=== PATIENT | male | born 1960 | race African-American/Black ===

== ENCOUNTER 2020-09-28 13:05 | Emergency (ER) | payer BC ==
--- NOTE | 2020-09-28 14:23 | RAD REPORT ---
EXAM DESCRIPTION: RAD - Chest Pa And Lat (2 Views) - 09/28/2020 2:05 pm CLINICAL HISTORY: COUGH Chest pain. FINDINGS: Moderate bilateral pulmonary opacities are present suspicious for COVID-19 infection. The heart is normal in size.
[2020-09-28 15:20] LABS: Potassium 3.9 mmol/L (3.5-5.1)
[2020-09-28 15:22] LABS: Absolute Lymphocytes (CBC) 1.1 K/uL (0.7-4.9); Basophils % 0.4 % (0-1.3); Hematocrit 43.2 % (39.6-49.0); Lymphocytes % 13.2 % (15.3-44.8); MPV 8.6 fL (7.6-11.3)
--- NOTE | 2020-09-28 16:18 | RAD REPORT ---
EXAM DESCRIPTION: CT - Chest For Pe Angio - 09/28/2020 4:07 pm CLINICAL HISTORY: Chest pain. shortness of breath COMPARISON: SHOULDER dated 02/04/2007 TECHNIQUE: CT angiogram of the pulmonary arteries was performed with MIP. All CT scans are performed using dose optimization technique as appropriate and may include automated exposure control or mA/KV adjustment according to patient size. FINDINGS: No evidence of pulmonary thromboembolism. No acute aortic finding demonstrated. Extensive bilateral pulmonary opacities are present most compatible with underlying COVID-19 infectio n. No significant pericardial or pleural fluid. No concerning bony finding. IMPRESSION: No evidence of pulmonary thromboembolism. Extensive bilateral pulmonary opacities are present, most compatible with COVID-19 infection.
--- NOTE | 2020-09-28 17:39 | ER ---
Nurse's Notes [facility] Name: Braxton Guzmán Age: 60 yrs Sex: Male : 1960 Arrival Date: 09/28/2020 Time: 13:10 Bed 23 Private MD: Diagnosis: Coronavirus infection, unspecified Presentation: 09/28 13:27 Chief complaint: Patient states: "shortness of breath since last week. COVID. feeling jd3 worse today. waking up in sweats.". Coronavirus screen: cough unrelated to allergies, difficulty breathing, fatigue, Client presents with at least one sign or symptom that may indicate coronavirus-19. Standard/surgical mask placed on the client. Provider contacted for isolation considerations. Ebola Screen: Patient negative for fever greater than or equal to 101.5 degrees Fahrenheit, and additional compatible Ebola Virus Disease symptoms. Initial Sepsis Screen: Does the patient meet any 2 criteria? No. Patient's initial sepsis screen is negative. Does the patient have a suspected source of infection? No. Patient's initial sepsis screen is negative. Risk Assessment: Do you want to hurt yourself or someone else? Patient reports no desire to harm self or others. Onset of symptoms was September 21, 2020. 13:27 Method Of Arrival: Ambulatory jd3 13:27 Acuity: SUSANNE 3 jd3 Historical: - Allergies: 13:31 No Known Allergies; jd3 - Home Meds: 13:31 lisinopril 40 mg Oral tab [Active]; amlodipine 10 mg tab [Active]; metoprolol tartrate jd3 50 mg Oral tab [Active]; - PMHx: 13:31 Hypertension; jd3 - PSHx: 13:31 achillies tendon repair bilateral; jd3 - Immunization history:: Adult Immunizations up to date. - Social history:: Smoking status: Patient denies any tobacco usage or history of. Screenin:46 Abuse screen: Denies threats or abuse. Abuse screen: Denies injuries from another. zb Nutritional screening: No deficits noted. Tuberculosis screening: No symptoms or risk factors identified. Fall Risk None identified. Assessment: 14:44 General: Appears in no apparent distress. uncomfortable, Behavior is calm, cooperative, zb appropriate for age, Reports feeling ill for > 3 days, fatigue for >3 days. Pain: Denies pain. Neuro: Level of Consciousness is awake, alert, obeys commands, Oriented to person, place, time, situation. Cardiovascular: Heart tones S1 present Capillary refill < 3 seconds Patient's skin is warm and dry. Respiratory: Reports shortness of breath at rest cough that is non-productive, persistent Airway is patent Respiratory effort is even, unlabored, Respiratory pattern is tachypnea Breath sounds are diminished in right middle lobe, left lower lobe and right lower lobe. GI: No deficits noted. EENT: Throat is clear. Derm: Skin is intact, is healthy with good turgor, Skin is dry, Skin is normal, Skin temperature is warm. Musculoskeletal: Circulation, motion, and sensation intact. Range of motion: intact in all extremities. 15:10 Reassessment: Patient appears in no apparent distress at this time. Patient and/or zb family updated on plan of care and expected duration. Pain level reassessed. Patient is alert, oriented x 3, equal unlabored respirations, skin warm/dry/pink. patient given water and sandwich while waiting on results. Patient states feeling better. Patient states symptoms have improved. 16:12 Reassessment: Patient appears in no apparent distress at this time. Patient and/or zb family updated on plan of care and expected duration. Pain level reassessed. patient returned from CT-scan. ambulated to restroom. 17:31 Reassessment: Patient appears in no apparent distress at this time. Patient and/or zb family updated on plan of care and expected duration. Pain level reassessed. Patient is alert, oriented x 3, equal unlabored respirations, skin warm/dry/pink. patient states that he is still coughing, want cough medication. notified ECP. 17:34 Reassessment: ECP at bedside discussing care with patient. zb 17:50 Reassessment: d/c instructions. given gait even and steady. no issues that the at this zb time. Vital Signs: 13:31 BP 135 / 90; Pulse 94; Resp 19 S; Temp 98.4(O); Pulse Ox 95% on R/A; Weight 94.35 kg jd3 (R); Height 5 ft. 7 in. (170.18 cm) (R); Pain 0/10; 15:10 BP 143 / 89; Pulse 79; Resp 20; Pulse Ox 94% on R/A; zb 16:30 BP 135 / 87; Pulse 82; Resp 19; Pulse Ox 92% on R/A; zb 17:31 BP 136 / 91; Pulse 82; Resp 16; Pulse Ox 92% on R/A; zb 13:31 Body Mass Index 32.58 (94.35 kg, 170.18 cm) jd3 ED Course: 13:10 Patient arrived in ED. am2 13:29 Triage completed. jd3 13:32 Arm band placed on. jd3 14:05 XRAY Chest Pa And Lat (2 Views) In Process Unspecified. EDMS 14:14 Sheldon Lorenzo PA is PHCP. jm 14:14 Placido Quiroga MD is Attending Physician. [facility] 14:32 Deirdre Roberts, LUCIANO is Primary Nurse. zb 14:46 Patient has correct armband on for positive identification. Bed in low position. Call zb light in reach. Side rails up X 1. Pulse ox on. NIBP on. Door closed. Noise minimized. 14:47 Inserted saline lock: 20 gauge in right antecubital area, using aseptic technique. zb Blood collected. 14:47 Initial lab(s) drawn, by ms, sent to lab. Strep swab sent to lab. zb 16:07 CT Chest For PE Angio In Process Unspecified. EDMS 17:51 No provider procedures requiring assistance completed. IV discontinued, intact, zb bleeding controlled, No redness/swelling at site. Pressure dressing applied. Administered Medications: 14:45 Drug: Decadron - Dexamethasone 10 mg Route: IVP; Site: right antecubital; zb 17:00 Follow up: Response: No adverse reaction; Marked relief of symptoms zb Outcome: 17:38 Discharge ordered by . michelle 17:51 Discharged to home ambulatory. zb 17:51 Condition: stable 17:51 Discharge instructions given to patient, Instructed on discharge instructions, follow up and referral plans. medication usage, Demonstrated understanding of instructions, follow-up care, medications, Prescriptions given X 3. 17:52 Patient left the ED. zb Signatures: Dispatcher [employer] EDMS Sheldno Lorenzo PA PA Sylvia Bustamante am2 Keo Elliott RN RN j Deirdre Roberts RN RN zb Corrections: (The following items were deleted from the chart) 13:33 13:31 Pulse 94bpm; Resp 19bpm; Spontaneous; Pulse Ox 95% RA; Temp 98.4F Oral; 94.35 kg jd3 Reported; Height 5 ft. 7 in. Reported; BMI: 32.5; Pain 0/10; jd3 16:13 15:10 Reassessment: patient given water and sandwich while waiting on results. martita anders
--- NOTE | 2020-09-28 17:39 | EDPHYS ---
Physician Documentation [facility] Name: Braxton Guzmán Age: 60 yrs Sex: Male : 1960 Arrival Date: 09/28/2020 Time: 13:10 Bed 23 Private MD: ED Physician Placido Quiroga HPI: 09/28 14:28 This 60 yrs old Black Male presents to ER via Ambulatory with complaints of shortness jmm of breath. 14:28 Onset: The symptoms/episode began/occurred gradually. Modifying factors: The symptoms jmm are alleviated by nothing, the symptoms are aggravated by nothing. Associated signs and symptoms:. This is a 60 year old male with a history of htn that presents to the ED with complaints of cough, congestion, increased sob since diagnoses of covid 1 week ago. . Historical: - Allergies: 13:31 No Known Allergies; jd3 - Home Meds: 13:31 lisinopril 40 mg Oral tab [Active]; amlodipine 10 mg tab [Active]; metoprolol tartrate jd3 50 mg Oral tab [Active]; - PMHx: 13:31 Hypertension; jd3 - PSHx: 13:31 achillies tendon repair bilateral; jd3 - Immunization history:: Adult Immunizations up to date. - Social history:: Smoking status: Patient denies any tobacco usage or history of. ROS: 14:28 Constitutional: Negative for fever, chills, and weight loss. jmm 14:28 ENT: Positive for sinus congestion, sore throat. 14:28 Respiratory: Positive for shortness of breath. 14:28 All other systems are negative. Exam: 14:28 Constitutional: This is a well developed, well nourished patient who is awake, alert, jmm and in no acute distress. Head/Face: atraumatic. Eyes: EOMI, no conjunctival erythema appreciated ENT: Moist Mucus Membranes Neck: Trachea midline, Supple Chest/axilla: Normal chest wall appearance and motion. Cardiovascular: Regular rate and rhythm. No edema appreciated Respiratory: Normal respirations, no respiratory distress appreciated Abdomen/GI: Non distended, soft Back: Normal ROM Skin: General appearance color normal MS/ Extremity: Moves all extremities, no obvious deformities appreciated, no edema noted to the lower extremities Neuro: Awake and alert, normal gait Psych: Behavior is normal, Mood is normal, Patient is cooperative and pleasant Vital Signs: 13:31 BP 135 / 90; Pulse 94; Resp 19 S; Temp 98.4(O); Pulse Ox 95% on R/A; Weight 94.35 kg jd3 (R); Height 5 ft. 7 in. (170.18 cm) (R); Pain 0/10; 15:10 BP 143 / 89; Pulse 79; Resp 20; Pulse Ox 94% on R/A; zb 16:30 BP 135 / 87; Pulse 82; Resp 19; Pulse Ox 92% on R/A; zb 17:31 BP 136 / 91; Pulse 82; Resp 16; Pulse Ox 92% on R/A; zb 13:31 Body Mass Index 32.58 (94.35 kg, 170.18 cm) jd3 MDM: 14:23 Patient medically screened. [facility] 17:37 Data reviewed: vital signs, nurses notes. Counseling: I had a detailed discussion with sunni the patient and/or guardian regarding: the historical points, exam findings, and any diagnostic results supporting the discharge/admit diagnosis, lab results, radiology results, the need for outpatient follow up, to return to the emergency department if symptoms worsen or persist or if there are any questions or concerns that arise at home. ED course: VS WNL, imagins studies negative for PE. Patient prescribed oral medication and otherwise given strict return precautions. Patient understood and agrees with the plan of care. . 09/28 14:24 Order name: Strep; Complete Time: 15:26 [facility] 09/28 14:24 Order name: CBC with Diff; Complete Time: 15:27 [facility] 09/28 13:32 Order name: XRAY Chest Pa And Lat (2 Views); Complete Time: 14:27 [facility] 09/28 14:24 Order name: BMP; Complete Time: 15:22 [facility] 09/28 14:24 Order name: D-Dimer; Complete Time: 15:25 [facility] 09/28 15:26 Order name: Throat Culture [facility] 09/28 14:24 Order name: Saline Lock; Complete Time: 14:43 [facility] 09/28 15:23 Order name: CT Chest For PE Angio; Complete Time: 16:25 [facility] Administered Medications: 14:45 Drug: Decadron - Dexamethasone 10 mg Route: IVP; Site: right antecubital; zb 17:00 Follow up: Response: No adverse reaction; Marked relief of symptoms zb Disposition: 18:10 Co-signature as Attending Physician, Placido Quiroga MD. rn Disposition: 09/28/20 17:38 Discharged to Home. Impression: Coronavirus infection, unspecified. - Condition is Stable. - Discharge Instructions: COVID-19. - Prescriptions for ivermectin 3 mg Oral tablet - take 6 tablet by ORAL route as directed one dose now and one dose on day 3; 12 tablet. Prednisone 20 mg Oral Tablet - take 3 tablet by ORAL route once daily for 5 days; 15 tablet. Albuterol Sulfate 90 mcg/actuation - inhale 1-2 puff by INHALATION route every 4-6 hours; 1 Inhaler. - Medication Reconciliation Form, Thank You Letter, Antibiotic Education, Prescription Opioid Use form. - Follow up: Private Physician; When: 2 - 3 days; Reason: Recheck today's complaints, Continuance of care, Re-evaluation by your physician. - Notes: Please take 10,000 IU of Vitamin D daily. Please take 1000 MG of NAC (N-Acetyl Cysteine) three times a day. 2 mg of melatonin before bed. Signatures: Dispatcher [employer] EDMS Sheldon Lorenzo PA PA jmm Nieto, Roman, MD MD rn Davies, Jonathon, RN RN jd3 Brown, Zipporah, RN RN zb Corrections: (The following items were deleted from the chart) 17:52 17:38 09/28/2020 17:38 Discharged to Home. Impression: Coronavirus infection, zb unspecified. Condition is Stable. Forms are Medication Reconciliation Form, Thank You Letter, Antibiotic Education, Prescription Opioid Use. Follow up: Private Physician; When: 2 - 3 days; Reason: Recheck today's complaints, Continuance of care, Re-evaluation by your physician. sunni
[2020-09-28 18:18] VITALS: TEMP 98.4
[2020-09-28 18:21] VITALS: O2SAT 92
[2020-09-28 18:22] VITALS: BP 136/91
== END 2020-09-28 17:52 | disposition home or self-care (01) ==
LOC: ER 13:05
DX: U07.1 COVID-19 (principal); I10 Essential (primary) hypertension
CPT/HCPCS: 87070; 85025; 80048; 36415; 85379; 87081; 71275; 71046; Q9967; 96374; 99284

== ENCOUNTER 2020-12-13 14:28 | Emergency (ER) | payer BC ==
[2020-12-13 15:08] LABS: Absolute Lymphocytes (CBC) 1.9 K/uL (0.7-4.9); Basophils % 0.5 % (0-1.3); Hematocrit 41.6 % (39.6-49.0); Lymphocytes % 25.6 % (15.3-44.8); Protime INR 1.11; RBC Red Blood Cell Count 5.34 M/uL (4.33-5.43)
[2020-12-13 15:20] LABS: ALT/SGPT 23 U/L (12-78); AST/SGOT 14 U/L (15-37); Albumin 3.6 g/dL (3.4-5.0); Alkaline Phosphatase 74 U/L (45-117); BUN Blood Urea Nitrogen 13 mg/dL (7-18); Bicarbonate 28 mmol/L (21-32); Bilirubin Direct 0.2 mg/dL (0-0.2); Bilirubin Total 0.7 mg/dL (0.2-1.0); Glucose Level 141 mg/dL (74-106); Magnesium 2.1 mg/dL (1.8-2.4); NT PRO-BNP 23 pg/mL (<125); Potassium 3.7 mmol/L (3.5-5.1); Protein, Total 7.8 g/dL (6.4-8.2); Sodium Level 140 mmol/L (136-145); Troponin (Emerg Dept Use Only) < 0.02 ng/mL (0.0-0.045)
--- NOTE | 2020-12-13 15:37 | RAD REPORT ---
EXAM DESCRIPTION: RAD - Chest Single View - 12/13/2020 3:24 pm CLINICAL HISTORY: CHEST PAIN COMPARISON: Chest Pa And Lat (2 Views) dated 09/28/2020; CHEST SINGLE VIEW dated 05/11/2008; CHEST PA AND LAT 2 VIEW dated 11/20/2002; Chest For Pe Angio dated 09/28/2020 FINDINGS: Linear airspace disease left lung base similar to prior and may reflect scarring. Overall the aeration of the lungs is improved compared with 09/28/2020. The heart size is within normal limit s.No acute osseous abnormality. No significant pleural effusions or pneumothorax. IMPRESSION: No acute process identified. Improved aeration compared with 09/28/2020.
[2020-12-13] MEDS ORDERED: KETOROLAC 30 MG/ML INJ ONE (16:18)
--- NOTE | 2020-12-15 16:49 | ER ---
Nurse's Notes [facility] Name: Braxton Guzmán Age: 60 yrs Sex: Male : 1960 Arrival Date: 12/13/2020 Time: 14:29 Bed 8 Private MD: Diagnosis: Other muscle spasm-left chest wall Presentation: 12/13 14:36 Chief complaint: Patient states: Intermittent dull, aching CP to left chest, jl7 non-radiating. Coronavirus screen: Client denies travel out of the [place] in the last 14 days. At this time, the client does not indicate any symptoms associated with coronavirus-19. Ebola Screen: No symptoms or risks identified at this time. Initial Sepsis Screen: Does the patient meet any 2 criteria? No. Patient's initial sepsis screen is negative. Does the patient have a suspected source of infection? No. Patient's initial sepsis screen is negative. Risk Assessment: Do you want to hurt yourself or someone else? Patient reports no desire to harm self or others. Onset of symptoms was December 12, 2020. Care prior to arrival: None. 14:36 Method Of Arrival: Wheelchair jl7 14:36 Acuity: SUSANNE 2 jl7 Triage Assessment: 14:39 General: Appears in no apparent distress. uncomfortable, Behavior is calm, cooperative, jl7 appropriate for age. Pain: Complains of pain in left breast Pain does not radiate. Pain currently is 1 out of 10 on a pain scale. at worst was 7 out of 10 on a pain scale. Quality of pain is described as aching, dull, Pain began 1 day ago. Is intermittent. Neuro: Level of Consciousness is awake, alert, obeys commands, Oriented to person, place, time, situation. Cardiovascular: Patient's skin is warm and dry. Respiratory: Airway is patent Respiratory effort is even, unlabored, Respiratory pattern is regular, symmetrical. Derm: Skin is dry, Skin is normal, Skin temperature is warm. Historical: - Allergies: 14:39 No Known Allergies; jl7 - Home Meds: 14:39 amlodipine 10 mg tab [Active]; lisinopril 40 mg Oral tab [Active]; metoprolol tartrate jl7 50 mg Oral tab [Active]; - PMHx: 14:39 Hypertension; jl7 - Immunization history:: Adult Immunizations up to date, Client reports receiving the 2nd dose of the Covid vaccine. - Social history:: Smoking status: Patient denies any tobacco usage or history of. - Family history:: not pertinent. Screenin:55 Abuse screen: Denies threats or abuse. Denies injuries from another. Nutritional kg screening: No deficits noted. Tuberculosis screening: No symptoms or risk factors identified. Fall Risk None identified. No fall in past 12 months (0 pts). No secondary diagnosis (0 pts). IV access (20 points). Ambulatory Aid- None/Bed Rest/Nurse Assist (0 pts). Gait- Normal/Bed Rest/Wheelchair (0 pts) Mental Status- Oriented to own ability (0 pts). Total Camilo Fall Scale indicates No Risk (0-24 pts). Assessment: 14:45 General: See triage assessment. [facility] 16:00 Reassessment: Patient appears in no apparent distress at this time. No changes from [facility] previously documented assessment. Patient and/or family updated on plan of care and expected duration. Pain level reassessed. Patient is alert, oriented x 3, equal unlabored respirations, skin warm/dry/pink. 17:00 Reassessment: Patient appears in no apparent distress at this time. Patient and/or jl7 family updated on plan of care and expected duration. Pain level reassessed. Patient is alert, oriented x 3, equal unlabored respirations, skin warm/dry/pink. Patient states feeling better. Vital Signs: 14:36 BP 144 / 92; Pulse 82; Resp 16; Temp 98.1; Pulse Ox 98% on R/A; Weight 98.88 kg; Height [facility] 5 ft. 7 in. (170.18 cm); Pain 1/10; 15:59 BP 140 / 92; Pulse 84; Resp 15; Pulse Ox 100% ; jl7 16:30 BP 139 / 88; Pulse 78; Resp 20; Pulse Ox 100% on R/A; kg 17:16 BP 147 / 89; Pulse 75; Resp 15; Pulse Ox 97% ; jl7 17:30 BP 120 / 76; Pulse 71; Resp 18; Pulse Ox 97% ; kg 18:00 BP 134 / 74; Pulse 68; Resp 20; Pulse Ox 98% ; kg 18:30 BP 135 / 67; Pulse 73; Resp 29; Pulse Ox 99% on R/A; kg 14:36 Body Mass Index 34.14 (98.88 kg, 170.18 cm) jl7 ED Course: 14:29 Patient arrived in ED. jl7 14:36 Marifer San MD is Attending Physician. ma2 14:36 Lizeth Cuellar, RN is Primary Nurse. jl7 14:39 Triage completed. jl7 14:39 Arm band placed on right wrist. jl7 14:41 EKG done, by ED staff, reviewed by Marifer San MD. jl7 14:51 Initial lab(s) drawn, by nh, sent to lab. Inserted saline lock: 20 gauge in right jl7 antecubital area, using aseptic technique. Blood collected. Patient maintains SpO2 saturation greater than 95% on room air. 15:24 XRAY Chest (1 view) In Process Unspecified. EDMS 18:55 No provider procedures requiring assistance completed. IV discontinued, intact, kg bleeding controlled, No redness/swelling at site. Pressure dressing applied. 18:56 Patient has correct armband on for positive identification. Placed in gown. Bed in low kg position. Call light in reach. Side rails up X 1. court recording monitor on. Pulse ox on. NIBP on. Administered Medications: 15:58 Drug: Ketorolac 30 mg Route: IVP; Site: right antecubital; jl7 18:56 Follow up: Response: No adverse reaction; Marked relief of symptoms kg Outcome: 18:30 Discharge ordered by . ma2 18:55 Discharged to home ambulatory. kg 18:55 Condition: good 18:55 Discharge instructions given to patient, Instructed on discharge instructions, follow up and referral plans. Demonstrated understanding of instructions, follow-up care, medications, Prescriptions given X 2. 18:58 Patient left the ED. kg Signatures: Dispatcher [employer] EDMS Lizeth Cuellar, RN RN Marifer Melgoza MD MD ma2 Graham, Kristen, RN RN kg
--- NOTE | 2020-12-15 16:49 | EDPHYS ---
Physician Documentation [facility] Name: Braxton Guzmán Age: 60 yrs Sex: Male : 1960 Arrival Date: 12/13/2020 Time: 14:29 Bed 8 Private MD: ED Physician Marifer San HPI: 12/13 16:09 This 60 yrs old Black Male presents to ER via Wheelchair with complaints of Chest wall ma2 Pain. 16:09 Onset: gradually, 3 day(s) ago. Associated signs and symptoms: Pertinent negatives: ma2 cough, lower extremity pain, lower extremity swelling, nausea, syncope, vomiting. Modifying factors: the symptoms are aggravated by cough, deep breath, movement, palpation of area, twisting torso. Severity of pain: At its worst the pain was mild in the emergency department the pain is unchanged. The patient has experienced a previous episode. 60 years old male history of hypertension, he is here with left-sided chest wall pain stabbing in nature constant for 3 days, worse with movement, palpation, deep breath, and cough, there is no substernal chest pain no radiation, never had any heart issues before he has been doing a heavy lifting over the last 2 days moving from his current housing.. Historical: - Allergies: 14:39 No Known Allergies; jl7 - Home Meds: 14:39 amlodipine 10 mg tab [Active]; lisinopril 40 mg Oral tab [Active]; metoprolol tartrate jl7 50 mg Oral tab [Active]; - PMHx: 14:39 Hypertension; jl7 - Immunization history:: Adult Immunizations up to date, Client reports receiving the 2nd dose of the Covid vaccine. - Social history:: Smoking status: Patient denies any tobacco usage or history of. - Family history:: not pertinent. ROS: 16:09 Constitutional: Negative for fever, chills, and weight loss. ma2 16:09 All other systems are negative. Exam: 16:09 Constitutional: This is a well developed, well nourished patient who is awake, alert, ma2 and in no acute distress. Chest/axilla: There is left lower anterior chest wall tenderness, skin is within normal limits otherwise normal chest wall appearance and motion. No lesions are appreciated. Cardiovascular: Regular rate and rhythm with a normal S1 and S2. No gallops, murmurs, or rubs. Normal PMI, no JVD. No pulse deficits. Respiratory: Lungs have equal breath sounds bilaterally, clear to auscultation and percussion. No rales, rhonchi or wheezes noted. No increased work of breathing, no retractions or nasal flaring. Abdomen/GI: Soft, non-tender, with normal bowel sounds. No distension or tympany. No guarding or rebound. No evidence of tenderness throughout. Back: No spinal tenderness. No costovertebral tenderness. Full range of motion. Skin: Warm, dry with normal turgor. Normal color with no rashes, no lesions, and no evidence of cellulitis. Vital Signs: 14:36 BP 144 / 92; Pulse 82; Resp 16; Temp 98.1; Pulse Ox 98% on R/A; Weight 98.88 kg; Height jl7 5 ft. 7 in. (170.18 cm); Pain 1/10; 15:59 BP 140 / 92; Pulse 84; Resp 15; Pulse Ox 100% ; jl7 16:30 BP 139 / 88; Pulse 78; Resp 20; Pulse Ox 100% on R/A; kg 17:16 BP 147 / 89; Pulse 75; Resp 15; Pulse Ox 97% ; jl7 17:30 BP 120 / 76; Pulse 71; Resp 18; Pulse Ox 97% ; kg 18:00 BP 134 / 74; Pulse 68; Resp 20; Pulse Ox 98% ; kg 18:30 BP 135 / 67; Pulse 73; Resp 29; Pulse Ox 99% on R/A; kg 14:36 Body Mass Index 34.14 (98.88 kg, 170.18 cm) 7 MDM: 14:37 Patient medically screened. ma2 16:09 Differential diagnosis: anxiety, chest wall pain, costochondritis, gastritis, ma2 gastroesophageal reflux disease (GERD). HEART Score: History: Slightly Suspicious (0), ECG: Normal (0), Age: > or = 65 years (2), Risk Factors: No Risk Factors Known (0), Troponin: < or = 1 x Normal Limit (0), Total Score = 1. Data reviewed: vital signs, nurses notes, EMS record, shelter records. ED course: Patient is clearly having musculoskeletal left-sided chest wall pain, that is reproducible on exam. omar and the heart score are not applicable. . 12/13 14:36 Order name: Basic Metabolic Panel; Complete Time: 15:30 12/13 14:36 Order name: CBC with Diff; Complete Time: 15:30 12/13 14:36 Order name: LFT's; Complete Time: 15:30 12/13 14:36 Order name: Magnesium; Complete Time: 15:30 12/13 14:36 Order name: NT PRO-BNP; Complete Time: 15:30 12/13 14:36 Order name: PT-INR; Complete Time: 15:30 12/13 14:36 Order name: Troponin (emerg Dept Use Only); Complete Time: 15:30 12/13 14:36 Order name: XRAY Chest (1 view); Complete Time: 15:51 12/13 14:36 Order name: EKG; Complete Time: 14:37 12/13 14:36 Order name: Cardiac monitoring; Complete Time: 14:41 12/13 14:36 Order name: EKG - Nurse/Tech; Complete Time: 14:41 12/13 14:36 Order name: IV Saline Lock; Complete Time: 14:41 12/13 16:40 Order name: Troponin (emerg Dept Use Only) [facility] 12/13 14:36 Order name: Labs collected and sent; Complete Time: 14:41 12/13 14:36 Order name: O2 Per Protocol; Complete Time: 14:41 12/13 14:36 Order name: O2 Sat Monitoring; Complete Time: 14:41 Administered Medications: 15:58 Drug: Ketorolac 30 mg Route: IVP; Site: right antecubital; jl7 18:56 Follow up: Response: No adverse reaction; Marked relief of symptoms kg Disposition Summary: 12/13/20 18:30 Discharge Ordered Location: Home ma2 Condition: Fair ma2 Diagnosis - Other muscle spasm - left chest wall ma2 Followup: ma2 - With: Private Physician - When: Tomorrow - Reason: If symptoms return, Continuance of care Discharge Instructions: - Discharge Summary Sheet ma2 - Muscle Cramps and Spasms ma2 - Heat Therapy ma2 Forms: - Medication Reconciliation Form ma2 - Thank You Letter ma2 - Antibiotic Education ma2 - Prescription Opioid Use ma2 Prescriptions: - Cyclobenzaprine 10 mg Oral Tablet - take 1 tablet by ORAL route every 8 hours As needed; 30 tablet; Refills: 0, ma2 Product Selection Permitted - Diclofenac Sodium 75 mg Oral Tablet Sustained Release - take 1 tablet by ORAL route 2 times per day; 30 tablet; Refills: 0, Product ma2 Selection Permitted Signatures: Dispatcher [employer] Lizeth Mejia RN RN jl7 Marifer San MD MD ma2 Skylar Brody RN kg
[2020-12-15 21:40] VITALS: TEMP 98.1
[2020-12-15 21:50] VITALS: BP 135/67; O2SAT 99
== END 2020-12-13 18:58 | disposition home or self-care (01) ==
LOC: ER 14:28
DX: M62.838 Other muscle spasm (principal); I10 Essential (primary) hypertension
CPT/HCPCS: 36415; 71045; 80048; 80076; 83735; 83880; 84484; 85025; 85610; 93005; 96374; 99285